=== PATIENT | female | born 1950 | race Caucasian/White ===

== ENCOUNTER 2019-11-29 09:24 | Outpatient (CLI) | payer MEDICARE, MEDICAID, SELFPAY ==
[2019-11-29 10:01] LABS: Basophils % 0.5 %; Eosinophils # 0.1 10^3/uL (0.0-0.8); Eosinophils % 2.6 %; Hematocrit 34.5 % (37.0-47.0); Hemoglobin 11.2 g/dL (11.5-15.3); Lymphocytes # 0.7 10^3/uL (0.8-4.8); Lymphocytes % 35.4 %; Mean Corpuscular HGB Conc 32.5 g/dL (30.0-36.0); Mean Corpuscular Hemoglobin 28.5 pg (28.0-34.0); Mean Corpuscular Volume 87.8 fL (81-99); Mean Platelet Volume 11.6 fL (7.4-10.4); Monocytes # 0.1 10^3/uL (0.2-0.9); Monocytes % 6.7 %; Neutrophils # 1.1 10^3/uL (1.8-7.7); Neutrophils % 54.8 %; Nucleated Red Blood Cells % 0 %; Platelet Count 77 10^3/cmm (130-400); Red Blood Count 3.93 10^6/uL (4.1-5.3); Red Cell Distribution Width 13.2 % (12.1-15.1)
[2019-11-29 15:16] LABS: Partial Thromboplastin Time 35.5 Seconds (23.9-36.7)
[2019-11-29 15:40] LABS: PTT 50/50 MIX 31.4 Seconds (23.9-36.7)
[2019-11-29 16:26] LABS: LAB Peripheral Smear Sent for Review
--- NOTE | 2019-11-29 17:08 | ONC CON_ITS ---
Dr. Hill New Patient Note Patient: Bijal Wise Unit #: [id number]: [id number] Dicatated By: Venanico Hill M.D.Date of Visit: Nov 29, 2019 Onc MED New Patient/Consult Referring Physician: Dr. NYASIA GONZALES M.D. History of Present Illness: Mrs. Bijal Wise, is a 69-year-old female with a history of low blood counts for many years, as per patient about 15 years ago she underwent bone marrow evaluation in [facility], as per patient at that time there was a concern about lesion on her spine, there was a concern about bone cancer but bone marrow evaluation showed no abnormality. And then about 3 years ago her routine labs showed high protein in the blood, at that time she underwent some further blood testing but since then she has been followed by her primary care. Denies any history of blood transfusion or platelet transfusion denies any recurrent infections. Denies any alcohol use or smoking, colonoscopy was done about 5 years ago and [place], as per patient it was normal and now follow-up was colonoscopy scheduled in August this year but because of coronavirus it was postponed. Patient denies any history of hepatitis or hepatic problem, no history of congestive heart failure. Patient denies any history of night sweats, recurrent fevers, weight loss, and peripheral lymphadenopathy. Recently she was diagnosed with iron deficiency as her labs from November 22, 2019 showed white blood count 3.2 hemoglobin 11.6 crit 36.3 platelets 87,000, reticulocyte count 2.1, TSH 1.5, folate 9.6, B12 419, iron saturation 18, iron 65, TIBC 364 total protein 6.7 ferritin 23. Patient was started on oral iron, tolerating reasonably well. Patient denies any history of melena or hematochezia, denies any history of hemoptysis or hematemesis, denies any jaundice, denies any palpitation or shortness of breath. Past Medical History: Ms. Reyes medical history consists of asthma, chronic obstructive pulmonary disease, degenerative joint disease, fibromyalgia, hiatal hernia, hypertension, obstructive sleep apnea, restless leg syndrome, and type II diabetes. Past Surgical History: Ms. Watsons surgical/procedural history consists of bilateral total knee replacement, bone marrow aspiration/biopsy, cataract excision, and hysterectomy. Medications: amLODIPine Besy-Benazepril HCl 1 Capsule (of 10-20 mg) Oral daily, Esomeprazole Magnesium 1 Capsule Oral b.i.d., HYDROcodone-Acetaminophen 1 Tablet (of 10-325 mg) Oral t.i.d. PRN, metFORMIN HCl 1 Tablet (of 1000 mg) Oral b.i.d., PARoxetine HCl 1 Tablet (of 40 mg) Oral daily, rOPINIRole HCl 1 Tablet (of 4 mg) Oral t.i.d. PRN Allergies: Mirapex Social History: Ms. Wise is legally and she is an unknown. She is a daily smoker who has smoked 0.5 packs/day for 30 years. She has no history of drinking. She has indicated exposure to the following products: cigarettes. Ms. Wise reports the following support systems: lives alone, supportive family/friends willing to assist with needs, and adequate transportation available for expected visits. Her diet consists of regular meals. She indicates her activity level as: occasional exercise. Family History: Ms. Wise's mother at age 68: stroke, and breast cancer. Ms. Wise's father at age 60: myocardial infarction. Ms. Wise has 2 sisters: 1 alive, 1 . Ms. Wise's first sister's breast cancer. Another sister's breast cancer. Review Of Symptoms: Constitutional - Appetite is poor but weight is increasing. No fever, night sweats, or hot flashes. Energy level is very poor, ENMT - Positive for sinus congestion/drainage. No mouth sores. No sore throat. Positive for difficulty swallowing, Hematologic/Lymphatic - No abnormal bruising or bleeding, Respiratory - Positive for shortness of breath. No cough. No pleuritic pain or hemoptysis, Cardiovascular - No angina pain. No palpitations, Gastrointestinal - Positive for nausea, no vomiting. No heartburn or acid reflux. No diarrhea. Positive for constipation. No blood in the stool or black stools, Genitourinary (F) - No dysuria or hematuria. Positive for urinary frequency. No urgency. Positive for incontinence, Musculoskeletal - Positive for joint and back pain, Neurologic - No headache. Positive for dizziness.Positive for numbness in right leg, Psychiatric - Positive for anxiety, no depression. No insomnia. Vital Signs: Performed on Nov 29, 2019 11:34: 8, 38.78 (HIGH), 2.21 sq.m, 67.00 in, 96 %, 79 /min, 24 /min, 135/72 mm(hg), 99.0 F (HIGH), and 247.6 lbs (HIGH). Performance Status: 1 - No physically strenuous activity, but ambulatory and able to carry out light or sedentary work (e.g. office work, light house work). (ECOG) Physical Examination: ENMT - No mouth sores, no thrush, no jaundice, no peripheral lymphadenopathy, Respiratory - Lungs are clear to auscultation, Cardiovascular - Regular rate and rhythm of heart, Abdomen - Soft, bowel sounds present, nontender, Extremities - No edema, or rash. Lab/Imaging: Most recent lab results are not available for this patient. Impression: Pancytopenia, etiology could be multifactorial including nutritional, copper, zinc deficiency could be due to medications, could be primary bone marrow disorder like myelodysplasia or other marrow disorder, or splenic sequestration or Plan: Discussed with patient regarding her labs white blood count 2 hemoglobin 11.2 g hematocrit 34.5 platelets 77,000 with a normal differential Clinically, patient is doing well with no acute symptoms. Her follow-up labs showed persistent/progressive pancytopenia, leukopenia/thrombocytopenia is more prominent., Etiology could be primary bone marrow disorder like myelodysplasia or other marrow pathology, patient has history of high protein in the blood so she may have underlying plasma cell disorder. At this point we will consider checking copper, zinc level and serum protein electrophoresis/immunofixation and peripheral blood smear and also consider ultrasound abdomen to check hepatic spleen status. Patient will return to clinic in 1 month and if work-up remains inconclusive, will consider bone marrow evaluation Patient was advised to call gastroenterology in [place] regarding follow-up colonoscopy to rule out colon pathology, as she is iron deficiency anemia,. Return to clinic in 1 month with CBC Signed By: Venancio Hill M.D. <<Signature on File>>
[2019-12-01 07:12] LABS: PROTEIN, TOTAL 6.5 g/dL (6.1-8.1)
[2019-12-01 12:21] LABS: ABNORMAL PROTEIN BAND 1 0.3 g/dL (NONE DETECTED); ALBUMIN 3.7 g/dL (3.8-4.8); ALPHA 1 GLOBULIN 0.3 g/dL (0.2-0.3); ALPHA 2 GLOBULIN 0.5 g/dL (0.5-0.9); BETA 1 GLOBULIN 0.5 g/dL (0.4-0.6); BETA 2 GLOBULIN 0.3 g/dL (0.2-0.5); GAMMA GLOBULIN 1.2 g/dL (0.8-1.7)
== END 2019-11-29 09:25 | disposition home or self-care (01) ==
PROVIDERS: PCP Family Medicine; Visit Provider Internal Medicine Hematology & Oncology
DX: D61.818 Other pancytopenia (principal); D69.6 Thrombocytopenia, unspecified; E60 Dietary zinc deficiency; J44.9 Chronic obstructive pulmonary disease, unspecified; M79.7 Fibromyalgia; K44.9 Diaphragmatic hernia without obstruction or gangrene; E83.00 Disorder of copper metabolism, unspecified; D50.9 Iron deficiency anemia, unspecified; I10 Essential (primary) hypertension; G47.33 Obstructive sleep apnea (adult) (pediatric); E11.9 Type 2 diabetes mellitus without complications; M19.90 Unspecified osteoarthritis, unspecified site; J45.909 Unspecified asthma, uncomplicated; G25.81 Restless legs syndrome
CPT/HCPCS: 80500; 84155; 84165; 85025; 85610; 85611; 85730; 99203

== ENCOUNTER 2019-12-27 06:45 | Outpatient (CLI) | payer MEDICARE, MEDICAID, SELFPAY ==
--- NOTE | 2019-12-27 07:00 | US_ITS ---
WS: [id number] ULTRASOUND ABDOMEN CLINICAL INFORMATION: pancytopenia TECHNICALLY DIFFICULT EXAMINATION. COMPARISON: None. FINDINGS: Liver Size: Normal. Craniocaudal length: 22.7 cm. Echogenicity: Normal. Surface nodularity: None. Mass (size and location): None. Bile ducts Intrahepatic ducts: Normal. Common bile duct diameter: 0.6 cm. Gallbladder Cholelithiasis Gallstones: Present Gallbladder sludge: None. Gallbladder wall thickening: None. Pericholecystic fluid: None. Sonographic Street sign: Absent. Pancreas Normal as visualized. Spleen Splenomegaly: Present Craniocaudal length: 21.5 cm. Right kidney: Normal. Hydronephrosis: None. Size: 12.2 cm x 4.9 cm x 5.4 cm Left kidney: Small simple cyst measuring 1.7 x 1.8 cm Hydronephrosis: None. Size: 12.3 cm x 5.7 cm x 4.6 cm. Abdominal aorta and IVC Visualized portions are normal. Ascites: None. US/US abdomen complete* [id number] IMPRESSION: 1. Hepatomegaly. 2. Cholelithiasis. No gallbladder wall thickening or pericholecystic fluid. 3. Normal common bile duct. 4. No hydronephrosis in either kidney. 5. Splenomegaly measuring 21.4 x 7.7 cm
== END 2019-12-27 06:46 | disposition home or self-care (01) ==
PROVIDERS: PCP Family Medicine; Visit Provider Internal Medicine Hematology & Oncology
DX: D61.818 Other pancytopenia (principal); R16.0 Hepatomegaly, not elsewhere classified; K80.20 Calculus of gallbladder without cholecystitis without obstruction; R16.1 Splenomegaly, not elsewhere classified
CPT/HCPCS: 76700

== ENCOUNTER 2020-01-05 08:26 | Outpatient (CLI) | payer MEDICARE, MEDICAID, SELFPAY ==
[2020-01-05 09:08] LABS: Basophils % 0.6 %; Eosinophils # 0.1 10^3/uL (0.0-0.8); Eosinophils % 3.4 %; Hematocrit 35.1 % (37.0-47.0); Hemoglobin 10.8 g/dL (11.5-15.3); Lymphocytes # 0.6 10^3/uL (0.8-4.8); Lymphocytes % 31.3 %; Mean Corpuscular HGB Conc 30.8 g/dL (30.0-36.0); Mean Corpuscular Hemoglobin 27.3 pg (28.0-34.0); Mean Corpuscular Volume 88.9 fL (81-99); Mean Platelet Volume 11.4 fL (7.4-10.4); Monocytes # 0.1 10^3/uL (0.2-0.9); Neutrophils # 1.06 10^3/uL (1.8-7.7); Neutrophils % 59.1 %; Nucleated Red Blood Cells % 0 %; Platelet Count 83 10^3/cmm (130-400); Red Blood Count 3.95 10^6/uL (4.1-5.3); Red Cell Distribution Width 14.2 % (12.1-15.1); White Blood Count 1.8 10^3/uL (4.0-10.0)
--- NOTE | 2020-01-05 16:16 | ONC FU_ITS ---
Dr. Hill follow up note Patient: Bijal Wise Unit #: [id number]: [id number] Dicatated By: Venancio Hill M.D.Date of Visit:Jan 05, 2020 Onc Med Follow-up/Prog Note History of Present Illness: Mrs. Bijal Wise, is a 69-year-old female with a history of low blood counts for many years, as per patient about 15 years ago she underwent bone marrow evaluation in [facility], as per patient at that time there was a concern about lesion on her spine, there was a concern about bone cancer but bone marrow evaluation showed no abnormality. And then about 3 years ago her routine labs showed high protein in the blood, at that time she underwent some further blood testing but since then she has been followed by her primary care. Denies any history of blood transfusion or platelet transfusion denies any recurrent infections. Denies any alcohol use or smoking, colonoscopy was done about 5 years ago and [place], as per patient it was normal and so follow-up was colonoscopy scheduled in August this year but because of coronavirus it was postponed. Patient denies any history of hepatitis or hepatic problem, no history of congestive heart failure. Patient denies any history of night sweats, recurrent fevers, weight loss, and peripheral lymphadenopathy. Recently she was diagnosed with iron deficiency as her labs from November 22, 2019 showed white blood count 3.2 hemoglobin 11.6 crit 36.3 platelets 87,000, reticulocyte count 2.1, TSH 1.5, folate 9.6, B12 419, iron saturation 18, iron 65, TIBC 364 total protein 6.7 ferritin 23. Patient was started on oral iron, tolerating reasonably well. Patient denies any history of melena or hematochezia, denies any history of hemoptysis or hematemesis, denies any jaundice, denies any palpitation or shortness of breath. Ultrasonogram Abdomen done on December 27, 2019 showed splenomegaly size being 21.5 cm and hepatomegaly size being 22.7 cm, gallstones but no hydronephrosis Serum protein electrophoresis/immunofixation done on November 29, 2019 confirmed faint restricted band M spike in the gamma region and immunofixation confirmed it as a IgA with a kappa antisera Came for follow-up, denies any specific complaints, no melena or hematochezia, no hemoptysis or hematemesis, no jaundice, no fever chills, no nausea or vomiting, some abdominal fullness but no abdominal pain, no night sweats. Medications: amLODIPine Besy-Benazepril HCl 1 Capsule (of 10-20 mg) Oral daily, Esomeprazole Magnesium 1 Capsule Oral b.i.d., HYDROcodone-Acetaminophen 1 Tablet (of 10-325 mg) Oral t.i.d. PRN, metFORMIN HCl 1 Tablet (of 1000 mg) Oral b.i.d., PARoxetine HCl 1 Tablet (of 40 mg) Oral daily, rOPINIRole HCl 1 Tablet (of 4 mg) Oral t.i.d. PRN Allergies: Mirapex Review of Systems: Constitutional - Appetite is poor but weight is increasing. No fever, night sweats, or hot flashes. Energy level is very poor, ENMT - Positive for sinus congestion/drainage. No mouth sores. No sore throat. Positive for difficulty swallowing, Hematologic/Lymphatic - No abnormal bruising or bleeding, Respiratory - Positive for shortness of breath. No cough. No pleuritic pain or hemoptysis, Cardiovascular - No angina pain. No palpitations, Gastrointestinal - Positive for nausea, no vomiting. No heartburn or acid reflux. No diarrhea. Positive for constipation. No blood in the stool or black stools, Genitourinary (F) - No dysuria or hematuria. Positive for urinary frequency. No urgency. Positive for incontinence, Musculoskeletal - Positive for joint and back pain, Neurologic - No headache. Positive for dizziness.Positive for numbness in right leg, Psychiatric - Positive for anxiety, no depression. No insomnia. Vital Signs: Performed on Jan 05, 2020 11:04 Height - 67.00 in Weight - 247.0 lbs (LOW) BSA - 2.21 sq.m BMI - 38.69 (HIGH) Temperature - 98.0 F (LOW) Pulse - 75 /min Respiration - 26 /min BP - 121/57 mm(hg) O2 Sat - 95 % (LOW) Pain - 9 Performance Status: 2 - Ambulatory/capable of all self-care, unable to perform any work activities. Up and about more than 50% of waking hours. (ECOG) Physical Examination: ENMT - No mouth sores, no thrush, no jaundice, Respiratory - Lungs are clear, Cardiovascular - Regular rate and rhythm of heart, Abdomen - Soft, bowel sounds present, Extremities - 1+ edema bilateral. Lab/Imaging: Test performed on Nov 29, 2019 09:40 WBC 2.0 10 3/uL RBC 3.93 10 6/uL HGB 11.2 g/dL HCT 34.5 % MCV 87.8 fL MCH 28.5 pg MCHC 32.5 g/dL RDW 13.2 % Platelet Count 77 10 3/cmm MPV 11.6 fL Neutrophils 1.1 10 3/uL Lymphocytes 0.7 10 3/uL Monocytes 0.1 10 3/uL Eosinophils 0.1 10 3/uL Basophils 0.0 10 3/uL Neutrophil % 54.8 % Lymphocyte % 35.4 % Monocyte % 6.7 % Eosinophil % 2.6 % Basophils % 0.5 % NRBC % 0 % Impression: Pancytopenia, etiology could be multifactorial including nutritional, copper, zinc deficiency could be due to medications, could be primary bone marrow disorder like myelodysplasia or other marrow disorder, or splenic sequestration or Hepatosplenomegaly seen on abdominal sonogram done on December 27, 2019, liver size was 22.7 cm and spleen size was 21.5 cm 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 Clinically, patient doing reasonably well, with no new signs symptoms but her follow-up lab work-up shows persistent pancytopenia, most likely due to splenic sequestration but concern is hepatosplenomegaly seen on recently done abdominal sonogram and IgA monoclonal gammopathy, she may have underlying lymphoplasmacytic lymphoma causing both abnormalities At this point, we will proceed with bone marrow evaluation and she will return to clinic in 1 week after bone marrow procedure for further discussion and planning , and also consider CT scan of chest abdomen pelvis to rule out central lymphadenopathy or organomegaly. Signed By: Venancio Hill M.D. <<Signature on File>>
[2020-01-08 20:49] LABS: Copper Level 101 mcg/dL (70-175); Zinc Level, Serum or Plasma 65 mcg/dL (60-130)
== END 2020-01-05 08:27 | disposition home or self-care (01) ==
LOC: ONCMED 08:31
PROVIDERS: PCP Family Medicine; Visit Provider Internal Medicine Hematology & Oncology
DX: D61.818 Other pancytopenia (principal); R16.2 Hepatomegaly with splenomegaly, not elsewhere classified; D47.2 Monoclonal gammopathy
CPT/HCPCS: 82525; 84630; 85025; 99214

== ENCOUNTER 2020-01-13 09:39 | Day surgery (SDC) | payer MEDICARE, MEDICAID, SELFPAY ==
[2020-01-06 13:10] VITALS: BMI 38.7
[2020-01-13 10:12] VITALS: BP 138/73; PULSE 78; RESP 20; TEMP 36.6; O2SAT 97
[2020-01-13 10:39] LABS: Glucose Point of Care 149 mg/dL (70-110)
[2020-01-13] MEDS: sodium chloride 0.9% 1,000 ML 30 ML IV (10:54)
--- NOTE | 2020-01-13 11:10 | P.ANESASSM_ITS ---
Pre-Anesthetic Assessment Pre-Anesthetic Assessment: Height/Weight: Height 1.7 m Weight 112.037 kg Temp Pulse Resp BP Pulse Ox 97.8 F 78 20 H 138/73 97 01/13/20 10:12 01/13/20 10:12 01/13/20 10:12 01/13/20 10:12 01/13/20 10:12 Preop Diagnosis: pancytopenia Proposed Procedure: Operation Date: 01/13/20 11:30 Proposed Procedures p Bone Marrow Biospy With Aspiration(Not Applicable) - Venancio Hill MD Familial anesthetic complications: none Was Beta Zuleima taken within 24 hours: N/A Last intake: Intake Last Liquid Date 01/12/20 Last Liquid Time 23:00 Last Solid Date 01/12/20 Last Solid Time 19:00 Social: Social History: Tobacco and No alcohol Packs per day: 0.5 Exam: Pre-Anes Outpt Exam: alert, oriented x 3, clear to auscultation bilater ally and regular rate & rhythm Airway: Submandibular: WNL Cervical ROM: WNL MP: 2 Dentition: False Pulmonary: Pulmonary: COPD, LAYNE, Sleep apnea (cpap) and SOB CV/HEM: CV/HEM: HTN : : None reported Hepatic: Hepatic: None reported GI: GI: GERD Metabolic: Metabolic: DM and Morbid obesity Musc/skel: Musc/skel: Fibromyalgia, Lower Back Pain, OA/DJD and Weakness (generalized right side from nerve damage) Neuropsych: Neuropsych: Depression Anesthetic Plan: ASA status: 3 Anesthesia: MAC Risk of > 500 ml blood loss (7ml/kg in children): No Meds/Allergies Current Medications: Current Medications Generic Name Dose Route Start Last Admin Trade Name Freq PRN Reason Stop Dose Admin Sodium Chloride 1,000 mls @ 30 ml s/hr 01/13/20 10:15 01/13/20 10:54 Sodium Chloride 0.9% IV 01/14/20 10:14 30 mls/hr .Q24H RUBIA Administration PFSH Anesthesia PFSH: Family History (Updated 01/06/20 @ 13:07 by Stefanie Morley) Mother Breast cancer Stroke Father Myocardial infarction Sister Breast cancer Social History (Updated 01/06/20 @ 13:05 by Stefanie Morley) Smoking and tobacco status: current every day smoker Data Anesthesia Other Labs: Laboratory Results - last 48 hr 01/13/20 10:36 POC Glucose 149 Cardiac Studies: No Data to Display
[2020-01-13 11:38] LABS: Hemoglobin 11.2 g/dL (11.5-15.3); Mean Corpuscular HGB Conc 31.1 g/dL (30.0-36.0); Mean Corpuscular Hemoglobin 27.1 pg (28.0-34.0); Mean Platelet Volume 11.4 fL (7.4-10.4); Platelet Count 89 10^3/cmm (130-400); Red Blood Count 4.14 10^6/uL (4.1-5.3); Red Cell Distribution Width 14.3 % (12.1-15.1); White Blood Count 2.1 10^3/uL (4.0-10.0)
--- NOTE | 2020-01-13 12:01 | P.PCN_ITS ---
Bone Marrow Biopsy Bone Marrow Biopsy: I was consulted by [] office regarding bone marrow biopsy on Bijal Wise[]. Briefly, the patient is a [69] year old [female] with []. In the Outpatient Services Department, with nursing staff and laboratory technologists in attendance, the procedure was discussed with the patient. Appropriate consent form had been signed. Appropriate alternatives, benefits and risks of procedure were discussed with the patient and she was pre- operatively assessed with a history and physical by myself and cleared for the biopsy procedure. The patient did request IV sedation and that was provided by the Anesthesia Department. During sedation patient desaturated and stop breathing, airway was secured by anesthesia and sedation was discontinued bone marrow procedure was abandoned before even it was started. Patient woke up and alert, post sedation instructions were given to nursing by anesthesia. We will schedule her procedure later on Thank you for allowing me to participate in this patient's care and diagnosis. Coding Level of Care Code Acute County Administrator for Tab Luna
[2020-01-13 12:04] VITALS: BP 110/68; PULSE 75; RESP 18; TEMP 36.3; O2SAT 97
[2020-01-13 12:06] LABS: Absolute Segmented Neutrophil 0.8 10/cmm (1.6-7.1); Band Neutrophils Absolute 0.1 10^3/cmm (0.0-1.2); Eosinophils 4 %; Lymphocytes 49 %; Platelet Estimate Decreased (Normal); Segmented Neutrophils 39 %; Total Cells Counted 100 (0-100)
--- NOTE | 2020-01-13 12:06 | PC.NURSE ---
1144-Pt asleep, and Dr Hill cleaned site off. Pt started moving, and pts O2 sats started dropping and pt not breathing well. George, RESERVATIONS CLERK put oral airway in, but oral airway kept getting dislodged. We had to take pts false teeth out also. Pts sats continued to drop to 68-70%. So we got the ambu bag out and hooked up to high flow O2 and used mask, but never had to give breaths. 1154- Procedure aborted, and we waited for pt to wake up. Pt did well after waking up. Dr Hill said that we would have to do procedure under local at another date.
[2020-01-13 12:07] LABS: Toxic Granulation 1+
--- NOTE | 2020-01-13 12:16 | ANE.PACU2 ---
Inpatient post-anesthesia follow up: Airway intact: Yes Vital signs: Temperature 97.4 F Pulse Rate 75 Respiratory Rate 18 Blood Pressure 110/68 Pulse Oximetry 97 Oxygen Delivery Me thod Nasal Cannula Oxygen Flow Rate 3 Fraction of Inspir ed Oxygen Hydration adequate: Yes Nausea and vomiting: No Pain level: 1 Mental status: Baseline
[2020-01-13 12:25] VITALS: BP 122/68; PULSE 78; RESP 18; O2SAT 100
== END 2020-01-13 12:35 | disposition home or self-care (01) ==
PROVIDERS: PCP Family Medicine; Visit Provider Internal Medicine Hematology & Oncology
PROC: 07DT3ZX Extraction of Bone Marrow, Percutaneous Approach, Diagnostic (ICD-10-PCS; CPT 38222; principal; 2020-01-13 11:30)
DX: D47.2 Monoclonal gammopathy (principal); D61.818 Other pancytopenia; F17.210 Nicotine dependence, cigarettes, uncomplicated; J44.9 Chronic obstructive pulmonary disease, unspecified; G47.30 Sleep apnea, unspecified; I10 Essential (primary) hypertension; K21.9 Gastro-esophageal reflux disease without esophagitis; E11.9 Type 2 diabetes mellitus without complications; E66.01 Morbid (severe) obesity due to excess calories; Z68.38 Body mass index [BMI] 38.0-38.9, adult; M79.7 Fibromyalgia; M19.90 Unspecified osteoarthritis, unspecified site; F32.9 Major depressive disorder, single episode, unspecified
CPT/HCPCS: 12345; 36416; 38222; 82962; 85007; 85027; J2704; J7030

== ENCOUNTER 2020-01-19 10:03 | Outpatient (CLI) | payer MEDICARE, MEDICAID, SELFPAY ==
--- NOTE | 2020-01-19 10:00 | CT_ITS ---
WS: [id number] CT CHEST, ABDOMEN, AND PELVIS TECHNIQUE: Contrast-enhanced CT of the chest, abdomen, and pelvis with coronal and sagittal reformatt ed images. CLINICAL INFORMATION: PANCYTOPENIA COMPARISON: None. DLP: 2449.[address] scans at [facility] use at least one of these dose optimization techniques: automat ed exposure control; mA and/or kV adjustment per patient size (includes targeted exams where dose is matched to clinical indication); or iterative reconstruction. CT CHEST: Mild chronic emphysematous changes. No acute pulmonary infiltrates. Slight atelectasis in the lung ba ses. 4 mm noncalcified nodule superior segment left lower lobe. Tiny noncalcified subpleural nodule r ight upper lobe. Additional 6 mm noncalcified nodule versus tortuous vessel in the right lower lobe. Subsegmental atelectasis right lower lobe. A few calcified granulomas. Normal thyroid gland. No mediastinal or hilar lymphadenopathy. Calcified hilar and mediastinal lymph nodes. Normal caliber thoracic aorta. Normal descending thoracic aorta. N o axillary lymphadenopathy. CT ABDOMEN AND PELVIS: Hepatomegaly with diffuse fatty infiltration. Portal vein and splenic vein are patent. Cholelithiasis . Splenomegaly. Spleen measures 18 cm [id number]. Small moderate esophageal hiatal hernia. Fatty at rophy of the pancreas. Adrenal glands are normal. Normal renal parenchymal enhancement. No hydronephrosis. Small left renal cyst measuring 15 mm. Tiny right renal cyst. Normal caliber abdominal aorta. Aortic calcification. No free fluid in the abdomen or pelvis. A few sigmoid diverticuli. No evidence of small or large yuko l obstruction. No adenopathy in the abdomen or pelvis. No inguinal lymphadenopathy. Normal lumbar spi ne.. CT/CT chest abd pel w con* IMPRESSION: 1. Hepatomegaly with diffuse fatty infiltration. Splenomegaly. 2. No adenopathy in the chest abdomen or pelvis. 3. A few small pulmonary nodules the largest measuring 4 mm. Additional 6 mm n odule versus ectatic vessel right lower lobe. Recommend 6 month follow-up. 4. Normal caliber abdominal aorta. 5. Left renal cyst measuring 15 mm
[2020-01-19] MEDS: iohexol 300 mg/mL 50 mL Btl PO (10:17)
[2020-01-19 11:29] LABS: Blood Urea Nitrogen 9 mg/dL (8-23); Glomerular Filtration Rate 158.7 mL/min (90-130)
[2020-01-19] MEDS: iohexol 300 mg/mL 100 mL Btl IV (11:32)
== END 2020-01-19 10:04 | disposition home or self-care (01) ==
PROVIDERS: PCP Family Medicine; Visit Provider Internal Medicine Hematology & Oncology
DX: D61.818 Other pancytopenia (principal); R16.2 Hepatomegaly with splenomegaly, not elsewhere classified; K76.0 Fatty (change of) liver, not elsewhere classified; N28.1 Cyst of kidney, acquired; R91.8 Other nonspecific abnormal finding of lung field
CPT/HCPCS: 71260; 74177; 82565; 84520; Q9967

== ENCOUNTER 2020-01-26 08:20 | Outpatient (CLI) | payer MEDICARE, MEDICAID, SELFPAY ==
[2020-01-26 08:59] LABS: Basophils % 0.7 %; Eosinophils # 0.1 10^3/uL (0.0-0.8); Eosinophils % 2.1 %; Hematocrit 37.5 % (37.0-47.0); Hemoglobin 11.8 g/dL (11.5-15.3); Lymphocytes # 0.7 10^3/uL (0.8-4.8); Lymphocytes % 24.6 %; Mean Corpuscular HGB Conc 31.5 g/dL (30.0-36.0); Mean Corpuscular Hemoglobin 27.2 pg (28.0-34.0); Mean Corpuscular Volume 86.4 fL (81-99); Mean Platelet Volume 11.4 fL (7.4-10.4); Monocytes # 0.2 10^3/uL (0.2-0.9); Monocytes % 5.6 %; Nucleated Red Blood Cells % 0 %; Platelet Count 95 10^3/cmm (130-400); Red Blood Count 4.34 10^6/uL (4.1-5.3); Red Cell Distribution Width 14.5 % (12.1-15.1); White Blood Count 2.8 10^3/uL (4.0-10.0)
[2020-01-26 09:21] LABS: Alanine Aminotransferase 15 U/L (0-33); Albumin Level 3.9 g/dL (3.5-5.2); Alkaline Phosphatase 56 IU/L (35-105); Anion Gap 13.6 (5-19); Aspartate Amino Transferase 27 U/L (0-32); Blood Urea Nitrogen 10 mg/dL (8-23); Calcium 9.1 mg/dL (8.5-10.5); Carbon Dioxide 25 mmol/L (22-29); Chloride 105 mmol/L (98-107); Globulin 3.5 g/dL (1.3-4.6); Glomerular Filtration Rate 158.7 mL/min (90-130); Glucose 361 mg/dL (65-115); Osmolality Calculated 299 mOsm/kg (285-295); Potassium 4.6 mmol/L (3.5-5.1); Sodium 139 mmol/L (136-145); Total Bilirubin 0.8 mg/dL (0.15-1.2); Total Protein 7.4 g/dL (6.6-8.7)
--- NOTE | 2020-01-27 16:53 | ONC FU_ITS ---
Dr. Hill follow up note Patient: Bijal Wise Unit #: [id number]: 1950 Dicatated By: Venancio Hill M.D.Date of Visit:Jan 26, 2020 Onc Med Follow-up/Prog Note History of Present Illness: Mrs. Bijal Wise, is a 69-year-old female with a history of low blood counts for many years, as per patient about 15 years ago she underwent bone marrow evaluation in [facility], [place], as per patient at that time there was a concern about lesion on her spine, there was a concern about bone cancer but bone marrow evaluation showed no abnormality. And then about 3 years ago her routine labs showed high protein in the blood, at that time she underwent some further blood testing but since then she has been followed by her primary care. Denies any history of blood transfusion or platelet transfusion denies any recurrent infections. Denies any alcohol use or smoking, colonoscopy was done about 5 years ago and [place], as per patient it was normal and so follow-up was colonoscopy scheduled in August this year but because of coronavirus it was postponed. Patient denies any history of hepatitis or hepatic problem, no history of congestive heart failure. Patient denies any history of night sweats, recurrent fevers, weight loss, and peripheral lymphadenopathy. Recently she was diagnosed with iron deficiency as her labs from November 22, 2019 showed white blood count 3.2 hemoglobin 11.6 crit 36.3 platelets 87,000, reticulocyte count 2.1, TSH 1.5, folate 9.6, B12 419, iron saturation 18, iron 65, TIBC 364 total protein 6.7 ferritin 23. Patient was started on oral iron, tolerating reasonably well. Patient denies any history of melena or hematochezia, denies any history of hemoptysis or hematemesis, denies any jaundice, denies any palpitation or shortness of breath. Ultrasonogram Abdomen done on December 27, 2019 showed splenomegaly size being 21.5 cm and hepatomegaly size being 22.7 cm, gallstones but no hydronephrosis Serum protein electrophoresis/immunofixation done on November 29, 2019 confirmed faint restricted band M spike in the gamma region and immunofixation confirmed it as a IgA with a kappa antisera as SPEP shows IgA monoclonal gammopathy to rule out lymphoplasmacytic lymphoma or lymphoproliferative disorder CT scan of chest abdomen pelvis was done on January 19, 2020 which showed no central lymphadenopathy, but hepatosplenomegaly and a few small pulmonary nodules the largest measuring 4 mm and additional 6 mm nodule versus ectatic vessel right lower lobe. Recommended 6-month follow-up Came for follow-up, denies any specific complaints today, no fever chills, no nausea or vomiting, no diarrhea or constipation, no melena or hematochezia, bone marrow aspiration/biopsy was attempted under sedation but because of history of severe sleep apnea, patient could not tolerate sedation so procedure was abandoned even before started. Medications: amLODIPine Besy-Benazepril HCl 1 Capsule (of 10-20 mg) Oral daily, Esomeprazole Magnesium 1 Capsule Oral b.i.d., HYDROcodone-Acetaminophen 1 Tablet (of 10-325 mg) Oral t.i.d. PRN, metFORMIN HCl 1 Tablet (of 1000 mg) Oral b.i.d., PARoxetine HCl 1 Tablet (of 40 mg) Oral daily, rOPINIRole HCl 1 Tablet (of 4 mg) Oral t.i.d. PRN Allergies: Mirapex Review of Systems: Constitutional - Appetite is poor but weight is increasing. No fever, night sweats, or hot flashes. Energy level is very poor, ENMT - Positive for sinus congestion/drainage. No mouth sores. No sore throat. Positive for difficulty swallowing, Hematologic/Lymphatic - No abnormal bruising or bleeding, Respiratory - Positive for shortness of breath. No cough. No pleuritic pain or hemoptysis, Cardiovascular - No angina pain. No palpitations, Gastrointestinal - Positive for nausea, no vomiting. No heartburn or acid reflux. No diarrhea. Positive for constipation. No blood in the stool or black stools, Genitourinary (F) - No dysuria or hematuria. Positive for urinary frequency. No urgency. Positive for incontinence, Musculoskeletal - Positive for joint and back pain, Neurologic - No headache. Positive for dizziness.Positive for numbness in right leg, Psychiatric - Positive for anxiety, no depression. No insomnia. Vital Signs: Performed on Jan 26, 2020 10:24 Height - 67.00 in Weight - 240.0 lbs (LOW) BSA - 2.18 sq.m BMI - 37.59 (HIGH) Temperature - 98.1 F (LOW) Pulse - 79 /min Respiration - 26 /min BP - 153/82 mm(hg) (HIGH) O2 Sat - 98 % Pain - 7 Performance Status: 1 - No physically strenuous activity, but ambulatory and able to carry out light or sedentary work (e.g. office work, light house work). (ECOG) Physical Examination: ENMT - No mouth sores, no thrush, no jaundice, Respiratory - Lungs are clear, Cardiovascular - Regular rate and rhythm of heart, Abdomen - Soft, bowel sounds present, Extremities - No visible edema. Lab/Imaging: Test performed on Jan 05, 2020 08:53 Copper 101 mcg/dL WBC 1.8 10 3/uL RBC 3.95 10 6/uL HGB 10.8 g/dL HCT 35.1 % MCV 88.9 fL MCH 27.3 pg MCHC 30.8 g/dL RDW 14.2 % Platelet Count 83 10 3/cmm MPV 11.4 fL Neutrophils 1.06 10 3/uL Lymphocytes 0.6 10 3/uL Monocytes 0.1 10 3/uL Eosinophils 0.1 10 3/uL Basophils 0.0 10 3/uL Neutrophil % 59.1 % Lymphocyte % 31.3 % Monocyte % 5.0 % Eosinophil % 3.4 % Basophils % 0.6 % NRBC % 0 % Impression: Pancytopenia, etiology could be multifactorial including nutritional, copper, zinc deficiency could be due to medications, could be primary bone marrow disorder like myelodysplasia or other marrow disorder, or splenic sequestration or Hepatosplenomegaly seen on abdominal sonogram done on December 27, 2019, liver size was 22.7 cm and spleen size was 21.5 cm 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 per serum protein electrophoresis/immunofixation done on November 29, 2019 Plan: Discussed with patient regarding her labs white blood count 2.8 hemoglobin 11.8 hematocrit 37.5 platelets 95,000 with CMP within normal range And CT scan of chest abdomen pelvis done on January 19, 2020 showed hepatomegaly with diffuse fatty infiltration and splenomegaly. No adenopathy in the chest abdomen pelvis. A few small pulmonary nodules the largest measuring 4 mm, additional 6 mm nodule versus ectatic vessel right lower lobe. Recommend 6-month follow-up. Clinically, patient is doing well with no new signs symptoms, her follow-up CBC shows improvement in her total white blood cell e.g. 2.8 now compared to 1.8 on January 05, 2020 and platelet count is also improving 95,000 compared to 83,000 on January 05, 2020, bone marrow was attempted but patient could not tolerate sedation so procedure was abandoned even before started, patient was hesitant to consider bone marrow under local anesthesia And if needed we will consider bone marrow aspiration under local anesthesia.^. As her follow-up CBC shows improvement in her blood counts,, patient is on oral iron, will monitor as her mild bicytopenia could be due to splenic sequestration as she has significant hepatosplenomegaly of unknown etiology, we will refer her to php programmer at [facility] for evaluation she will return to clinic after evaluation at [facility] in [place], with CBC and iron studies. As SPEP shows IgA monoclonal gammopathy, CT scan of chest abdomen pelvis was done to rule out lymphoplasmacytic or lymphoproliferative disorder, it showed no central lymphadenopathy but hepatosplenomegaly and few subcentimeter lung nodules ] Signed By: Venancio Hill M.D. <<Signature on File>>
== END 2020-01-26 08:21 | disposition home or self-care (01) ==
LOC: ONCMED 08:25
PROVIDERS: PCP Family Medicine; Visit Provider Internal Medicine Hematology & Oncology
DX: D61.818 Other pancytopenia (principal); E61.0 Copper deficiency; E60 Dietary zinc deficiency; D47.2 Monoclonal gammopathy; R16.2 Hepatomegaly with splenomegaly, not elsewhere classified; J44.9 Chronic obstructive pulmonary disease, unspecified; M79.7 Fibromyalgia; I10 Essential (primary) hypertension; G47.33 Obstructive sleep apnea (adult) (pediatric); G25.81 Restless legs syndrome; E11.9 Type 2 diabetes mellitus without complications
CPT/HCPCS: 80053; 85025; G0463

== ENCOUNTER 2020-06-23 07:55 | Outpatient (CLI) | payer MEDICARE, MEDICAID, SELFPAY ==
[2020-06-23 10:43] LABS: Basophils % 0.3 %; Eosinophils % 0.3 %; Hematocrit 39.6 % (37.0-47.0); Lymphocytes # 1.6 10^3/uL (0.8-4.8); Lymphocytes % 24.7 %; Mean Corpuscular HGB Conc 32.8 g/dL (30.0-36.0); Mean Corpuscular Hemoglobin 27.4 pg (28.0-34.0); Mean Corpuscular Volume 83.5 fL (81-99); Mean Platelet Volume 10.1 fL (7.4-10.4); Monocytes # 0.4 10^3/uL (0.2-0.9); Monocytes % 6.5 %; Neutrophils # 4.38 10^3/uL (1.8-7.7); Neutrophils % 66.2 %; Nucleated Red Blood Cells % 0 %; Platelet Count 113 10^3/cmm (130-400); Red Blood Count 4.74 10^6/uL (4.1-5.3); Red Cell Distribution Width 14.6 % (12.1-15.1); White Blood Count 6.6 10^3/uL (4.0-10.0)
[2020-06-23 10:59] LABS: Alanine Aminotransferase 35 U/L (0-33); Albumin Level 4.1 g/dL (3.5-5.2); Alkaline Phosphatase 50 IU/L (35-105); Anion Gap 14.3 (5-19); Aspartate Amino Transferase 21 U/L (0-32); Blood Urea Nitrogen 12 mg/dL (8-23); Calcium 9.8 mg/dL (8.5-10.5); Carbon Dioxide 28 mmol/L (22-29); Chloride 99 mmol/L (98-107); Ferritin 68 ng/mL (15-150); Globulin 2.7 g/dL (1.3-4.6); Glomerular Filtration Rate 221.2 mL/min (90-130); Glucose 149 mg/dL (65-115); Iron 90 ug/dL (37-145); Osmolality Calculated 287 mOsm/kg (285-295); Potassium 4.3 mmol/L (3.5-5.1); Sodium 137 mmol/L (136-145); Total Bilirubin 0.5 mg/dL (0.15-1.2); Total Iron Binding Capacity 321 mcg/dl; Total Protein 6.8 g/dL (6.6-8.7); Unsaturated Iron Binding 231 ug/dL (112-347)
== END 2020-06-23 07:56 | disposition home or self-care (01) ==
LOC: ONCMED 12:15
PROVIDERS: PCP Family Medicine; Visit Provider Internal Medicine Hematology & Oncology
DX: D61.818 Other pancytopenia (principal)
CPT/HCPCS: 80053; 82728; 83540; 83550; 85025

== ENCOUNTER 2020-06-26 05:34 | Outpatient (CLI) | payer MEDICARE, MEDICAID, SELFPAY ==
--- NOTE | 2020-06-26 16:34 | ONC FU_ITS ---
Dr. Hill follow up note Patient: Bijal Wise Unit #: [id number]: [id number] Dicatated By: Venancio Hill M.D.Date of Visit:Jun 26, 2020 Onc Med Follow-up/Prog Note History of Present Illness: Mrs. Bijal Wise, is a 69-year-old female with a history of low blood counts for many years, as per patient about 15 years ago she underwent bone marrow evaluation in [facility], as per patient at that time there was a concern about lesion on her spine, there was a concern about bone cancer but bone marrow evaluation showed no abnormality. And then about 3 years ago her routine labs showed high protein in the blood, at that time she underwent some further blood testing but since then she has been followed by her primary care. Denies any history of blood transfusion or platelet transfusion denies any recurrent infections. Denies any alcohol use or smoking, colonoscopy was done about 5 years ago and [place], as per patient it was normal and so follow-up was colonoscopy scheduled in August this year but because of coronavirus it was postponed. Patient denies any history of hepatitis or hepatic problem, no history of congestive heart failure. Patient denies any history of night sweats, recurrent fevers, weight loss, and peripheral lymphadenopathy. Recently she was diagnosed with iron deficiency as her labs from November 22, 2019 showed white blood count 3.2 hemoglobin 11.6 crit 36.3 platelets 87,000, reticulocyte count 2.1, TSH 1.5, folate 9.6, B12 419, iron saturation 18, iron 65, TIBC 364 total protein 6.7 ferritin 23. Patient was started on oral iron, tolerating reasonably well. Patient denies any history of melena or hematochezia, denies any history of hemoptysis or hematemesis, denies any jaundice, denies any palpitation or shortness of breath. Ultrasonogram Abdomen done on December 27, 2019 showed splenomegaly size being 21.5 cm and hepatomegaly size being 22.7 cm, gallstones but no hydronephrosis Serum protein electrophoresis/immunofixation done on November 29, 2019 confirmed faint restricted band M spike in the gamma region and immunofixation confirmed it as a IgA with a kappa antisera Evaluated via telephone, patient denies any specific complaints, no fever chills, no nausea or vomiting, no diarrhea constipation since our last visit in January 2020 as per patient she was diagnosed with walking pneumonia and treated with oral antibiotic as outpatient. And she missed her initial appointment with orthotic/prosthetic practitioner in [place]., No melena or hematochezia, no hemoptysis or hematemesis, no nosebleed or gum bleed. Medications: amLODIPine Besy-Benazepril HCl 1 Capsule (of 10-20 mg) Oral daily, Esomeprazole Magnesium 1 Capsule Oral b.i.d., HYDROcodone-Acetaminophen 1 Tablet (of 10-325 mg) Oral t.i.d. PRN, metFORMIN HCl 1 Tablet (of 1000 mg) Oral b.i.d., PARoxetine HCl 1 Tablet (of 40 mg) Oral daily, rOPINIRole HCl 1 Tablet (of 4 mg) Oral t.i.d. PRN Allergies: Mirapex Review of Systems: Review of Systems is not available for this patient. Vital Signs: Vitals are not available for this patient. Performance Status: 1 - No physically strenuous activity, but ambulatory and able to carry out light or sedentary work (e.g. office work, light house work). (ECOG) Physical Examination: ENMT - Patient denies mouth sores or thrush or lymphadenopathy or jaundice, Respiratory - Patient denies any shortness of breath or wheezing, Cardiovascular - Patient denies any palpitation, Abdomen - Patient denies any abdominal pain or fullness, Extremities - Patient denies any lower extremity edema. Lab/Imaging: Test performed on Jan 26, 2020 08:35 Sodium 139 mmol/L Potassium 4.6 mmol/L Chloride 105 mmol/L CO2 25 mmol/L Anion Gap 13.6 BUN 10 mg/dL Creatinine 0.4 mg/dL Cr Clearance (Est) 231.34 mL/min eGFR 158.7 mL/min Glucose 361 mg/dL Calcium 9.1 mg/dL Osmolality - Calculated 299 mOsm/kg Protein, Total 7.4 g/dL Albumin 3.9 g/dL Globulin 3.5 g/dL Bilirubin, Total 0.8 mg/dL ALT (SGPT) 15 U/L AST (SGOT) 27 U/L Alkaline Phosphatase 56 IU/L WBC 2.8 10 3/uL RBC 4.34 10 6/uL HGB 11.8 g/dL HCT 37.5 % MCV 86.4 fL MCH 27.2 pg MCHC 31.5 g/dL RDW 14.5 % Platelet Count 95 10 3/cmm MPV 11.4 fL Neutrophils 1.90 10 3/uL Lymphocytes 0.7 10 3/uL Monocytes 0.2 10 3/uL Eosinophils 0.1 10 3/uL Basophils 0.0 10 3/uL Neutrophil % 67.0 % Lymphocyte % 24.6 % Monocyte % 5.6 % Eosinophil % 2.1 % Basophils % 0.7 % NRBC % 0 % Test performed on Jan 05, 2020 08:53 Copper 101 mcg/dL Zinc 65 mcg/dL Impression: Pancytopenia, etiology could be multifactorial including nutritional, copper, zinc deficiency could be due to medications, could be primary bone marrow disorder like myelodysplasia or other marrow disorder, or splenic sequestration or Hepatosplenomegaly seen on abdominal sonogram done on December 27, 2019, liver size was 22.7 cm and spleen size was 21.5 cm 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 per serum protein electrophoresis/immunofixation done on November 29, 2019 Plan: Discussed with patient regarding her labs white blood count 6.6 hemoglobin 13 g hematocrit 39.6 platelets 113,000 CMP within normal limit except glucose 149 Clinically, patient is doing well denies any specific complaints her follow-up CBC shows resolution of persistent leukopenia and anemia and improvement in her mild/moderate thrombocytopenia. Patient was advised to keep her appointment with orthotic/prosthetic practitioner which is now scheduled for last part of August 2020. In the meantime she will return to clinic in 2 months with CBC CMP and SPEP/immunofixation and IgA level. Signed By: Venancio Hill M.D. <<Signature on File>>
== END 2020-06-26 05:35 | disposition home or self-care (01) ==
LOC: ONCMED 05:36
PROVIDERS: PCP Family Medicine; Visit Provider Internal Medicine Hematology & Oncology
DX: D61.818 Other pancytopenia (principal)

== ENCOUNTER 2021-01-24 11:29 | Outpatient (CLI) | payer MEDICARE, MEDICAID, SELFPAY ==
[2021-01-24 12:29] LABS: Basophils % 0.8 %; Eosinophils % 1.1 %; Hematocrit 36.8 % (37.0-47.0); Hemoglobin 11.1 g/dL (11.5-15.3); Lymphocytes % 28.1 %; Mean Corpuscular HGB Conc 30.2 g/dL (30.0-36.0); Mean Corpuscular Hemoglobin 26.4 pg (28.0-34.0); Mean Corpuscular Volume 87.6 fL (81-99); Mean Platelet Volume 10.4 fL (7.4-10.4); Monocytes # 0.3 10^3/uL (0.2-0.9); Monocytes % 6.8 %; Neutrophils # 2.27 10^3/uL (1.8-7.7); Neutrophils % 62.1 %; Nucleated Red Blood Cells % 0 %; Platelet Count 148 10^3/cmm (130-400); Red Cell Distribution Width 15.9 % (12.1-15.1); White Blood Count 3.7 10^3/uL (4.0-10.0)
[2021-01-24 12:50] LABS: Alanine Aminotransferase 19 U/L (0-33); Albumin Level 3.7 g/dL (3.5-5.2); Alkaline Phosphatase 47 IU/L (35-105); Aspartate Amino Transferase 18 U/L (0-32); Blood Urea Nitrogen 12 mg/dL (8-23); Calcium 9.3 mg/dL (8.5-10.5); Carbon Dioxide 25 mmol/L (22-29); Chloride 104 mmol/L (98-107); Globulin 2.7 g/dL (1.3-4.6); Glomerular Filtration Rate 158.3 mL/min (90-130); Glucose 143 mg/dL (65-115); Immunoglobulin IGA 448 mg/dL (70-400); Osmolality Calculated 294 mOsm/kg (285-295); Sodium 141 mmol/L (136-145); Total Bilirubin 0.7 mg/dL (0.15-1.2); Total Protein 6.4 g/dL (6.6-8.7)
[2021-01-25 05:53] LABS: PROTEIN, TOTAL 6.3 g/dL (6.1-8.1)
[2021-01-25 13:02] LABS: ABNORMAL PROTEIN BAND 1 0.2 g/dL (NONE DETECTED); ALBUMIN 3.6 g/dL (3.8-4.8); ALPHA 1 GLOBULIN 0.3 g/dL (0.2-0.3); ALPHA 2 GLOBULIN 0.6 g/dL (0.5-0.9); BETA 1 GLOBULIN 0.5 g/dL (0.4-0.6); BETA 2 GLOBULIN 0.4 g/dL (0.2-0.5)
--- NOTE | 2021-01-25 17:02 | ONC FU_ITS ---
Dr. Hill follow up note Patient: Bijal Wise Unit #: [id number]: 1950 Dicatated By: Venancio Hill M.D.Date of Visit:Jan 24, 2021 Onc Med Follow-up/Prog Note History of Present Illness: Mrs. Bijal Wise, is a 69-year-old female with a history of low blood counts for many years, as per patient about 15 years ago she underwent bone marrow evaluation in [facility], as per patient at that time there was a concern about lesion on her spine, there was a concern about bone cancer but bone marrow evaluation showed no abnormality. And then about 3 years ago her routine labs showed high protein in the blood, at that time she underwent some further blood testing but since then she has been followed by her primary care. Denies any history of blood transfusion or platelet transfusion denies any recurrent infections. Denies any alcohol use or smoking, colonoscopy was done about 5 years ago and [place], as per patient it was normal and so follow-up was colonoscopy scheduled in August this year but because of coronavirus it was postponed. Patient denies any history of hepatitis or hepatic problem, no history of congestive heart failure. Patient denies any history of night sweats, recurrent fevers, weight loss, and peripheral lymphadenopathy. Recently she was diagnosed with iron deficiency as her labs from November 22, 2019 showed white blood count 3.2 hemoglobin 11.6 crit 36.3 platelets 87,000, reticulocyte count 2.1, TSH 1.5, folate 9.6, B12 419, iron saturation 18, iron 65, TIBC 364 total protein 6.7 ferritin 23. Patient was started on oral iron, tolerating reasonably well. Patient denies any history of melena or hematochezia, denies any history of hemoptysis or hematemesis, denies any jaundice, denies any palpitation or shortness of breath. Ultrasonogram Abdomen done on December 27, 2019 showed splenomegaly size being 21.5 cm and hepatomegaly size being 22.7 cm, gallstones but no hydronephrosis Serum protein electrophoresis/immunofixation done on November 29, 2019 confirmed faint restricted band M spike in the gamma region and immunofixation confirmed it as a IgA with a kappa antisera earlier bone marrow was attempted to rule out plasma cell disorder and etiology of pancytopenia but prior to procedure with conscious sedation, patient become unresponsive, procedure was abandoned and anesthesiology managed her well. Came for follow-up, denies any specific complaints except generalized weakness and fatigue, no nausea or vomiting, no diarrhea or constipation, no melena or hematochezia no hemoptysis or hematemesis, earlier bone marrow was attempted to rule out plasma cell disorder and etiology of pancytopenia but prior to procedure with conscious sedation, patient become unresponsive, procedure was abandoned and anesthesiology managed her well. Medications: amLODIPine Besy-Benazepril HCl 1 Capsule (of 10-20 mg) Oral daily, Esomeprazole Magnesium 1 Capsule Oral b.i.d., HYDROcodone-Acetaminophen 1 Tablet (of 10-325 mg) Oral t.i.d. PRN, metFORMIN HCl 1 Tablet (of 1000 mg) Oral b.i.d., PARoxetine HCl 1 Tablet (of 40 mg) Oral daily, rOPINIRole HCl 1 Tablet (of 4 mg) Oral t.i.d. PRN Allergies: Mirapex Review of Systems: Review of Systems is not available for this patient. Vital Signs: Performed on Jan 24, 2021 16:30 Height - 67.00 in Weight - 228 lbs (LOW) BSA - 2.14 sq.m BMI - 35.71 (HIGH) Temperature - 97.0 F (LOW) Pulse - 77 /min Respiration - 18 /min BP - 145/78 mm(hg) (HIGH) O2 Sat - 97 % Pain - 8 Fatigue - 8 Performance Status: 1 - No physically strenuous activity, but ambulatory and able to carry out light or sedentary work (e.g. office work, light house work). (ECOG) Physical Examination: ENMT - No mouth sores, no thrush, no jaundiceNo cervical lymphadenopathy, Respiratory - Lungs are clear to auscultation, Cardiovascular - Regular rate and rhythm of heart, Abdomen - Soft, bowel sounds present, Extremities - Trace edema bilaterally. Lab/Imaging: Test performed on Jan 19, 2021 09:31 Glucose 199 mg/dL BUN 13 mg/dL Creatinine 0.60 mg/dL Cr Clearance (Est) 152.08 mL/min BUN/Creatinine Ratio 22 Absolute Value Sodium 139 mmol/L Potassium 3.8 mmol/L Chloride 102 mmol/L CO2 20 mmol/L Calcium 9.2 mg/dL Protein, Total 6.0 g/dL Albumin 3.5 g/dL Globulin 2.5 g/dL A/G Ratio 1.4 Absolute Value Bilirubin, Total 0.9 mg/dL Alkaline Phosphatase 46 IU/L AST (SGOT) 14 IU/L ALT (SGPT) 19 IU/L WBC 2.3 10^9/L RBC 3.51 10^12/L HGB 9.4 g/dL HCT 29.9 % MCV 85 fl MCH 26.8 pg MCHC 31.4 g/dL RDW 15.6 % Platelet Count 66 10^9/L Neutrophils (Gran) 1.2 10^9/L Lymphocytes 0.8 10^9/L Monocytes 0.4 10^9/L Eosinophils 0.0 10^9/L Basophils 0.0 10^9/L Manual Segs 44 % Manual Lymphocytes 33 % Manual Monocytes 16 % Manual Eosinophils 0 % Manual Basophils 1 % IGA 402 mg/dL IGG 743 mg/dL IGM 156 mg/dL Impression: Pancytopenia, etiology could be multifactorial including nutritional, copper, zinc deficiency could be due to medications, could be primary bone marrow disorder like myelodysplasia or other marrow disorder, or splenic sequestration or Hepatosplenomegaly seen on abdominal sonogram done on December 27, 2019, liver size was 22.7 cm and spleen size was 21.5 cm 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 per serum protein electrophoresis/immunofixation done on November 29, 2019, Bone marrow evaluation was attempted but prior to procedure with conscious sedation, patient become unresponsive, procedure was abandoned and patient was managed by anesthesiology Plan: .Discussed with patient regarding her labs white blood count 3.7 compared to 2.3 previously hemoglobin 11.1 g compared to 9.4 previously platelets 148,000 compared to 66 on January 19, 2021 CMP within normal limit. Quantitative globin shows IgA of 448, IgG 743 IgM 156 Clinically, patient doing reasonably well with no new signs symptom, her follow-up CBC showed resolution of mild/moderate thrombocytopenia, and significant improvement in leukopenia as well as anemia, etiology of her pancytopenia seen on her labs done on January 19, 2021 remained unclear could be due to subclinical infection or lab error As far as IgA monoclonal gammopathy is concerned, concern is plasma cell disorder like myeloma, bone marrow was attempted but due to conscious sedation patient become unresponsive so procedure was abandoned, discussed with patient regarding doing bone marrow under local anesthesia but patient is reluctant but will think about she will return to clinic in 1 month with CBC and iron studies as patient is on oral iron and tolerating reasonably well.And the patient agrees, we may consider bone marrow evaluation under local anesthesia to rule out plasma cell disorder like myeloma Signed By: Venancio Hill M.D. <<Signature on File>>
== END 2021-01-24 11:30 | disposition home or self-care (01) ==
LOC: ONCMED 11:34
PROVIDERS: PCP Family Medicine; Visit Provider Internal Medicine Hematology & Oncology
DX: D61.818 Other pancytopenia (principal); R16.2 Hepatomegaly with splenomegaly, not elsewhere classified; D47.2 Monoclonal gammopathy; Z79.899 Other long term (current) drug therapy
CPT/HCPCS: 36415; 80053; 82784; 84155; 84165; 85025; 99214

== ENCOUNTER → 2021-03-01 09:00 | Outpatient (BNVA) | payer MEDICARE, MEDICAID, SELFPAY | PROVIDERS: PCP Family Medicine; Visit Provider Internal Medicine Rheumatology | DX: M15.9 Polyosteoarthritis, unspecified (principal); Z79.899 Other long term (current) drug therapy; Z11.59 Encounter for screening for other viral diseases; Z11.1 Encounter for screening for respiratory tuberculosis; D89.2 Hypergammaglobulinemia, unspecified; E11.9 Type 2 diabetes mellitus without complications; Z79.84 Long term (current) use of oral hypoglycemic drugs; Z71.89 Other specified counseling; F17.200 Nicotine dependence, unspecified, uncomplicated; M19.90 Unspecified osteoarthritis, unspecified site | CPT/HCPCS: 36415; 71046; 73130; 73630; 82306; 85651; 86140; 86431; 86480; 86704; 86803; 87340; 99204 ==

== ENCOUNTER 2021-03-01 10:59 | Outpatient (CLI) | payer MEDICARE, MEDICAID, SELFPAY ==
--- NOTE | 2021-03-01 11:08 | XR_ITS ---
WS: [id number] XR foot RT min 3V* [id number] REASON FOR EXAM: Z79.899 - Other senior care (current) drug therapy FINDINGS: In the forefoot there is mild narrowing of the joint spaces with subchondral sclerosis in the DIP and MIP joints of the second through the fifth toes of the right foot Similar arthropathy is seen in the interphalangeal joint of the right great toe. A similar but more s evere arthropathy is seen in the tarsal metatarsal joint of the great toe. In the remainder of the right midfoot and in the hindfoot there is mild narrowing of the joint spaces with no significant bony abnormality or soft tissue abnormality. Small enthesophyte is seen at the p lantar ligament insertion on the calcaneus. XR/XR foot RT min 3V* [id number] IMPRESSION: Osteoarthritis of the right foot as above.
--- NOTE | 2021-03-01 11:08 | XR_ITS ---
WS: [id number] XR hand LT min 3V* [id number] REASON FOR EXAM: Z79.899 - Other jail (current) drug therapy FINDINGS: Mild narrowing of the joint space with subchondral sclerosis in the DIP and MIP joints of the left se cond through the fifth fingers. This is most notable in the DIP joints of the left first and fifth fi ngers. Similar but milder changes are seen in the MP joint and PIP joint of the left thumb. A more significa nt arthropathy is seen in the metacarpal phalangeal joint of the thumb with the same characterization . 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
--- NOTE | 2021-03-01 11:08 | XR_ITS ---
WS: [id number] XR foot LT min 3V* [id number] REASON FOR EXAM: Z79.899 - Other prison (current) drug therapy FINDINGS: Mild narrowing of the joint spaces with mild subchondral sclerosis in the second through the fifth to es of the left foot. Similar mild changes seen in the interphalangeal joint of the left In the remainder of the left midfoot and the hindfoot there is mild narrowing of the joint spaces wit hout significant bony or soft tissue abnormality. A small enthesophyte is seen at the insertion of th e plantar ligament on the calcaneus. Great toe. There is a more significant arthropathy of the same c haracter involving the tarsal metatarsal joint of the left great toe. 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
--- NOTE | 2021-03-01 11:08 | XR_ITS ---
WS: [id number] XR chest 2V* [id number] REASON FOR EXAM: Z79.899 - Other snf (current) drug therapy FINDINGS: Moderately tortuous and ectatic thoracic aorta without aneurysmal dilatation. Heart size at the upper limits of normal. Calcified granulomatous disease in both hemithoraces. No active pulmonary parenchymal or pleural dise ase. Bony thorax is intact. XR/XR chest 2V* [id number] IMPRESSION: No significant chest abnormality.
--- NOTE | 2021-03-01 11:08 | XR_ITS ---
WS: [id number] XR hand RT min 3V* [id number] REASON FOR EXAM: Z79.899 - Other senior living (current) drug therapy FINDINGS: Mild narrowing of the joint space with subchondral sclerosis and marginal osteophytes in the right th ird through the fifth DIP joints. There is mild narrowing of the MIP joints of the second through the fifth fingers. Similar arthropathy is seen in the interphalangeal joint of the right thumb. Similar but milder arthr opathic changes in the MP joint and carpal metacarpal joint of the thumb. XR/XR hand RT min 3V* [id number] IMPRESSION: Osteoarthritis right hand as above.
[2021-03-01 12:54] LABS: 25 Hydroxy Vitamin D 23 ng/mL (30-100); C Reactive Protein 3.8 mg/L (0.0-4.9); Hepatitis B Core AB, Total Non-Reactive (Nonreactive); Hepatitis B Surface Antigen Non-Reactive (Nonreactive); Hepatitis C Virus Antibody Non-Reactive (Nonreactive)
[2021-03-01 13:39] LABS: Erythrocyte Sedimentation Rate 18 mm/hr (0-15)
[2021-03-02 14:55] LABS: Cyclic Citrullinated Peptide <16 UNITS
[2021-03-03 13:02] LABS: Quantiferon Mitogen >10.00 IU/mL; Quantiferon Nil 0.02 IU/mL; Quantiferon TB Gold NEGATIVE (NEGATIVE)
== END 2021-03-01 11:00 | disposition home or self-care (01) ==
PROVIDERS: PCP Family Medicine; Visit Provider Internal Medicine Rheumatology
DX: M19.90 Unspecified osteoarthritis, unspecified site (principal); Z79.899 Other long term (current) drug therapy; Z11.59 Encounter for screening for other viral diseases; Z11.1 Encounter for screening for respiratory tuberculosis
CPT/HCPCS: 36415; 71046; 73130; 73630; 82306; 85651; 86140; 86431; 86480; 86704; 86803; 87340

== ENCOUNTER → 2021-03-20 09:18 | Outpatient (BNVA) | payer MEDICAID, SELFPAY | PROVIDERS: PCP Family Medicine; Visit Provider Internal Medicine Rheumatology | DX: M19.90 Unspecified osteoarthritis, unspecified site (principal); D89.2 Hypergammaglobulinemia, unspecified; Z79.899 Other long term (current) drug therapy; E11.9 Type 2 diabetes mellitus without complications; Z79.84 Long term (current) use of oral hypoglycemic drugs; M79.7 Fibromyalgia; Z71.85 Encounter for immunization safety counseling; F17.200 Nicotine dependence, unspecified, uncomplicated | CPT/HCPCS: 99214 ==

== ENCOUNTER 2021-09-05 14:18 | Outpatient (CLI) | payer MEDICARE, MEDICAID, SELFPAY ==
--- NOTE | 2021-09-12 10:35 | ONC FU_ITS ---
Claire Lock Progress Note Patient: Bijal Wise Unit #: [id number]: [id number] Dicatated By: Claire Lock N.P.Date of Visit:Sep 05, 2021 Onc MED Follow-up/Prog Note Chief Complaint: Pancytopenia History of Present Illness: Mrs. Bijal Wise, is a 70-year-old female with a history of low blood counts for many years, as per patient about 15 years ago she underwent bone marrow evaluation in [facility], as per patient at that time there was a concern about lesion on her spine, there was a concern about bone cancer but bone marrow evaluation showed no abnormality. And then about 3 years ago her routine labs showed high protein in the blood, at that time she underwent some further blood testing but since then she has been followed by her primary care. Denies any history of blood transfusion or platelet transfusion denies any recurrent infections. Denies any alcohol use or smoking, colonoscopy was done about 5 years ago and [place], as per patient it was normal and so follow-up was colonoscopy scheduled in August this year but because of coronavirus it was postponed. Patient denies any history of hepatitis or hepatic problem, no history of congestive heart failure. Patient denies any history of night sweats, recurrent fevers, weight loss, and peripheral lymphadenopathy. Recently she was diagnosed with iron deficiency as her labs from November 22, 2019 showed white blood count 3.2 hemoglobin 11.6 crit 36.3 platelets 87,000, reticulocyte count 2.1, TSH 1.5, folate 9.6, B12 419, iron saturation 18, iron 65, TIBC 364 total protein 6.7 ferritin 23. Patient was started on oral iron, tolerating reasonably well. Patient denies any history of melena or hematochezia, denies any history of hemoptysis or hematemesis, denies any jaundice, denies any palpitation or shortness of breath. Ultrasonogram Abdomen done on December 27, 2019 showed splenomegaly size being 21.5 cm and hepatomegaly size being 22.7 cm, gallstones but no hydronephrosis Serum protein electrophoresis/immunofixation done on November 29, 2019 confirmed faint restricted band M spike in the gamma region and immunofixation confirmed it as a IgA with a kappa antisera earlier bone marrow was attempted to rule out plasma cell disorder and etiology of pancytopenia but prior to procedure with conscious sedation, patient become unresponsive, procedure was abandoned and anesthesiology managed her well. Patient presents today for follow-up. She is scheduled for bone marrow biopsy next week. She states her appetite has been good. No fever, chills, night sweats. No sinus drainage or mouth sores. No cough or chest pain. She complains of achiness all over and it is on and off. No headache. Review Of Symptoms: See above. Past Medical History: Asthma Chronic obstructive pulmonary disease Degenerative joint disease Fibromyalgia Hiatal hernia Hypertension Obstructive sleep apnea Restless leg syndrome Type II diabetes Past Surgical History: Bilateral total knee replacement Bone marrow aspiration/biopsy Cataract excision Hysterectomy Allergies: Mirapex Medications: amLODIPine Besy-Benazepril HCl 1 Capsule (of 10-20 mg) Oral daily Esomeprazole Magnesium 1 Capsule Oral b.i.d. HYDROcodone-Ibuprofen 1 Tablet (of 10-200 mg) Oral t.i.d. PRN Hydroxychloroquine Sulfate (200 mg) Tablet Oral b.i.d. Iron 1 Tablet (of 325 (65 fe) mg) Oral daily Lasix 1 Tablet (of 40 mg) Oral daily metFORMIN HCl 1 Tablet (of 1000 mg) Oral b.i.d. PARoxetine HCl 1 Tablet (of 40 mg) Oral daily rOPINIRole HCl 1 Tablet (of 4 mg) Oral daily PRN sulfaSALAzine (1000 mg) Tablet Oral t.i.d. Vitamin D Tablet Oral daily Family History: Ms. Wise's mother at age 68: stroke, and breast cancer. Ms. Wise's father at age 60: myocardial infarction. Ms. Wise has 2 sisters: 1 alive, 1 . Ms. Wise's first sister's breast cancer. Another sister's breast cancer. Social History: Ms. Wise is legally and she is an unknown. She is a daily smoker who has smoked 0.5 packs/day for 32 years. She has no history of drinking. She has indicated exposure to the following products: cigarettes. Ms. Wise reports the following support systems: lives alone, supportive family/friends willing to assist with needs, and adequate transportation available for expected visits. Her diet consists of regular meals. She indicates her activity level as: occasional exercise. less than half a pack. Physical Examination: Performed on Sep 05, 2021 15:09: Height - 67.00 in, Weight - 238.2 lbs (HIGH), BSA - 2.18 sq.m, BMI - 37.31 (HIGH), Temperature - 98.7 F, Pulse - 86 /min, Respiration - 18 /min, BP - 134/71 mm(hg), O2 Sat - 95 % (LOW), Pain - 9, and Fatigue - 8. Performance Status: 1 - No physically strenuous activity, but ambulatory and able to carry out light or sedentary work (e.g. office work, light house work). (ECOG) Constitutional Alert, cooperative, oriented. Mood and affect appropriate. Appears close to chronological age. Well nourished. Well developed. Head Normocephalic; no scars. Respiratory Lungs are clear to auscultation without rhonchi or wheezing. Cardiovascular Regular rate and rhythm of heart without murmurs, gallops or rubs. Extremities No visible deformities, no cyanosis, clubbing or edema. Pulses 3+ and equal bilaterally. Psychiatric Alert and oriented times three. Coherent speech. Verbalizes understanding of our discussions today. Laboratory: Test performed on Jul 30, 2021 12:00 WBC 1.9 10^9/L RBC 4.01 10^12/L HGB 11.9 g/dL HCT 34.9 % MCV 87.0 fl MCH 29.8 pg MCHC 34.2 g/dL RDW 14.1 % Platelet Count 69 10^9/L MPV 8.7 fL Neutrophils (Gran) 0.96 10^9/L Lymphocytes 0.703 10^9/L Monocytes 0.1596 10^9/L Eosinophils 0.0551 10^9/L Basophils 0.0114 10^9/L IGA 437 mg/dL IGG 1095 mg/dL IGM 153 mg/dL [place] / Lambda Ratio 1.32 Absolute Value Lambda Light Chain 21.5 [place] Light Chain 28.3 Test performed on Jun 20, 2021 09:56 Ferritin 36 ng/mL % Iron Saturation 25 % Glucose 174 mg/dL BUN 8 mg/dL Iron, Total 82 mcg/dL Creatinine 0.54 mg/dL TIBC 327 mcg/dL Cr Clearance (Est) 160.53 mL/min BUN/Creatinine Ratio 15 Absolute Value Sodium 140 mmol/L Potassium 4.4 mmol/L Chloride 102 mmol/L CO2 26 mmol/L Calcium 9.8 mg/dL Protein, Total 7.3 g/dL Albumin 3.9 g/dL Globulin 3.4 g/dL A/G Ratio 1.1 Absolute Value Bilirubin, Total 0.8 mg/dL Alkaline Phosphatase 47 International Units/L AST (SGOT) 19 International Units/L ALT (SGPT) 14 International Units/L Test performed on May 02, 2021 10:21 Manual Lymphocytes 36 % Manual Monocytes 8 % Manual Eosinophils 2 % Manual Basophils 1 % Test performed on Apr 10, 2021 08:32 C-Reactive Protein (mg/L) 1 mg/L Bilirubin, Direct 0.15 mg/dL Impression: Pancytopenia, etiology could be multifactorial including nutritional, copper, zinc deficiency could be due to medications, could be primary bone marrow disorder like myelodysplasia or other marrow disorder, or splenic sequestration or Hepatosplenomegaly seen on abdominal sonogram done on December 27, 2019, liver size was 22.7 cm and spleen size was 21.5 cm 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 She will follow-up in 2 weeks to discuss results with CBC and CMP. Signed By: Claire Lock NElroy. <<Signature on File>>
== END 2021-09-05 14:19 | disposition home or self-care (01) ==
PROVIDERS: PCP Family Medicine; Visit Provider Internal Medicine Hematology & Oncology
DX: D61.818 Other pancytopenia (principal); R16.2 Hepatomegaly with splenomegaly, not elsewhere classified; D47.2 Monoclonal gammopathy; Z79.899 Other long term (current) drug therapy
CPT/HCPCS: 87635; 99214

== ENCOUNTER 2021-09-10 09:57 | Day surgery (SDC) | payer MEDICARE, MEDICAID, SELFPAY ==
[2021-09-07 07:14] VITALS: BMI 36.8
[2021-09-10 10:51] VITALS: BP 143/81; PULSE 64; RESP 18; TEMP 36.3; O2SAT 97
[2021-09-10] MEDS: sodium chloride 0.9% 1,000 ML 30 ML IV (11:10)
--- NOTE | 2021-09-10 11:18 | P.ANESASSM_ITS ---
Pre-Anesthetic Assessment Height/Weight: Height 1.7 m Weight 106.594 kg Temp Pulse Resp BP Pulse Ox 97.4 F L 64 18 143/81 97 09/10/21 10:51 09/10/21 10:51 09/10/21 10:51 09/10/21 10:51 09/10/21 10:51 Preop Diagnosis: pancytopenia Operation Date: 09/10/21 12:30 Proposed Procedures p Bone Marrow Biospy With Aspiration(Not Applicable) - Venancio Hill MD Was Clonidine taken within 24 hours: N/A Last intake: Intake Last Liquid Date 09/09/21 Last Liquid Time 23:30 Last Solid Date 09/09/21 Last Solid Time 16:00 Social Tobacco and No alcohol Exam alert, oriented x 3, clear to auscultation bilaterally and regular rate & rhythm Airway Submandibular: within normal limits Cervical ROM: within normal limits Mallampati: Class II Dentition: false History/ROS No significant history except as noted and No significant complaints Pulmonary Chronic Obstructive Pulmonary Disease, Exertional Dyspnea, Sleep Apnea and Shortness of Breath CV/HEM None reported None reported Hepatic Cirrhosis GI Gastroesophageal Reflux Disease Metabolic Diabetes Mellitus [facility] [place] None reported Neuropsych None reported Anesthetic Plan ASA status: 3 Anesthesia: Anesthesia Evaluation and MAC Risk of > 500 ml blood loss (7ml/kg in children): No Medications/Allergies Home Medications Medication Instructions Recorded Confirmed Last Taken Type amlodipine 10 mg-benazepril 20 mg 1 cap PO DAILY 01/06/20 09/07/21 09/09/21 History capsule esomeprazole magnesium 20 mg 20 mg PO BID 01/06/20 09/07/21 09/09/21 History capsule,delayed release (Nexium) hydrocodone 5 mg-acetaminophen 325 1 tab PO Q8H PRN 01/06/20 09/07/21 09/09/21 History mg tablet metformin 1,000 mg tablet 1,000 mg PO BID 01/06/20 09/07/21 09/09/21 History ropinirole 4 mg tablet 4 mg PO TID 01/06/20 09/10/21 09/10/21 History fluoxetine 40 mg capsule (Prozac) 40 mg PO DAILY 03/01/21 09/07/21 09/09/21 History levocetirizine 5 mg tablet 5 mg PO DAILY 03/01/21 09/07/21 09/09/21 History hydroxychloroquine 200 mg tablet 200 mg PO BID #60 tab 03/20/21 09/07/21 09/09/21 Rx sulfasalazine 500 mg tablet 1 g PO BID #120 tab 03/20/21 09/07/21 09/09/21 Rx tramadol 50 mg tablet 50 mg PO TID PRN #60 tab 08/08/21 09/07/21 09/09/21 Rx calcium phosphate,dibasic 77 1 tab PO DAILY 09/07/21 09/07/21 09/09/21 History mg-vitamin D3 400 unit tablet ferrous sulfate 325 mg (65 mg 325 mg PO DAILY 09/07/21 09/07/21 09/09/21 History iron) tablet (iron) Allergies Allergy/AdvReac Type Severity Reaction Status Date / Time pramipexole [From Mirapex] Allergy Unknown Verified 03/20/21 09:36 Current Medications Generic Name Dose Route Start Last Admin Trade Name Freq PRN Reason Stop Dose Admin Sodium Chloride 1,000 mls @ 30 mls/hr 09/10/21 10:45 09/10/21 11:10 Sodium Chloride 0.9% IV 09/11/21 10:44 30 mls/hr .Q24H RUBIA Administration PFSH Anesthesia Medical History High risk medication use Immunization counseling Inflammatory arthritis Paraproteinemia Type 2 diabetes mellitus Family History Mother Breast cancer Stroke Father Myocardial infarction Sister Breast cancer Other CAD (coronary artery disease) Cancer Diabetes Denies family history of Rheumatoid arthritis Lupus Chronic kidney disease (CKD) Lung disease Hypertension Social History Smoking and tobacco status: current every day smoker Data Anesthesia Cardiac Studies: No Data to Display
[2021-09-10 11:38] LABS: Basophils % 0.6 %; Eosinophils % 2.2 %; Hematocrit 35.2 % (37.0-47.0); Hemoglobin 11.6 g/dL (11.5-15.3); Lymphocytes # 0.6 10^3/uL (0.8-4.8); Lymphocytes % 32.6 %; Mean Corpuscular Hemoglobin 28.6 pg (28.0-34.0); Mean Corpuscular Volume 86.7 fl (81-99); Mean Platelet Volume 11.4 fL (7.4-10.4); Monocytes # 0.1 10^3/uL (0.2-0.9); Monocytes % 6.6 %; Neutrophils # 1.04 10^3/uL (1.8-7.7); Neutrophils % 57.4 %; Nucleated Red Blood Cells % 0 %; Platelet Count 64 10^3/cmm (130-400); Red Blood Count 4.06 10^6/uL (4.1-5.3); Red Cell Distribution Width 13.1 % (12.1-15.1); White Blood Count 1.8 10^3/uL (4.0-10.0)
--- NOTE | 2021-09-10 11:40 | W.PM.OPSUD ---
Surgery/Procedure H&P Update DATE OF PROCEDURE: September 10, 2021 DATE H&P PERFORMED: 01/05/20 CHANGES TO PREVIOUS DOCUMENTATION: Ms. Bijal Wise with a history of pancytopenia etiology could be multifactorial including underlying MDS, now being scheduled for bone marrow evaluation, since her last visit, no significant changes or symptoms PREOP DIAGNOSIS: pancytopenia PLANNED PROCEDURE: Operation Date: 09/10/21 12:30 Proposed Procedures p Bone Marrow Biospy With Aspiration(Not Applicable) - Venancio Hill MD
--- NOTE | 2021-09-10 12:18 | PM.BMB ---
Bone Marrow Biopsy Bone Marrow Biopsy: I was consulted by [] office regarding bone marrow biopsy on [Bijal Wise]. Briefly, the patient is a [70] year old [Female] with [Pancytopenia]. In the Outpatient Services Department, with nursing staff and laboratory technologists in attendance, the procedure was discussed with the patient. Appropriate consent form had been signed. Appropriate alternatives, benefits and risks of procedure were discussed with the patient and she was pre-operatively assessed with a history and physical by myself and cleared for the biopsy procedure. The patient did request IV sedation and that was provided by the Anesthesia Department. Under aseptic condition, right posterior iliac area was cleaned and prepped, local anesthesia was given, about 15 cc of bone marrow aspirate and core biopsy was obtained, patient tolerated procedure well, hemostasis obtained, specimen was sent for routine histopathology, flow cytometry, cytogenetics and FISH for MDS and myeloma panel. Postprocedure nursing instructions were given. Thank you for allowing me to participate in this patient's care and diagnosis. Coding Level of Care Code Acute Web Page Developer for Chg Fwd History Problem Focused Exam Problem Focused Medical Decision Making Straight Forward
[2021-09-10 12:24] VITALS: BP 112/44; PULSE 71; RESP 18; TEMP 36.6; O2SAT 97
--- NOTE | 2021-09-10 12:35 | PC.NURSE ---
patient out of procedure. gauze and tape to back dry and intact.
[2021-09-10 12:38] VITALS: BP 127/71; PULSE 66; RESP 18; TEMP 36.6; O2SAT 97
--- NOTE | 2021-09-10 13:04 | PC.NURSE ---
patient bone marrow site dry and intact to signs of bleeding. Will discharge patient home.
--- NOTE | 2021-09-10 14:08 | ANE.PACU2 ---
Inpatient post-anesthesia follow up: Airway intact: Yes Vital signs: Temperature 98 F Pulse Rate 66 Respiratory Rate 18 Blood Pressure 127/71 Pulse Oximetry 97 Oxygen Delivery Me thod Room Air Oxygen Flow Rate Fraction of Inspir ed Oxygen Hydration adequate: Yes Nausea and vomiting: No Pain level: 6 Mental status: Baseline
[2021-09-12 08:38] LABS: Leukemia Profile (BBPL) See Report; Lymphoma Profile (BBPL) See Report
[2021-09-21 12:22] LABS: Miscellaneous Test See Scanned Lab Rpt
== END 2021-09-10 13:04 | disposition home or self-care (01) ==
PROVIDERS: PCP Family Medicine; Visit Provider Internal Medicine Hematology & Oncology
PROC: 07DT3ZX Extraction of Bone Marrow, Percutaneous Approach, Diagnostic (ICD-10-PCS; CPT 38222; principal; 2021-09-10 12:30)
DX: D61.818 Other pancytopenia (principal); J44.9 Chronic obstructive pulmonary disease, unspecified; G47.30 Sleep apnea, unspecified; K21.9 Gastro-esophageal reflux disease without esophagitis; E11.9 Type 2 diabetes mellitus without complications; F17.210 Nicotine dependence, cigarettes, uncomplicated
CPT/HCPCS: 36415; 38222; 85025; 88184; 88185; 88237; 88264; 88305; 88311; 88367; 88374; J2704; J7030

== ENCOUNTER 2021-10-03 08:50 | Outpatient (CLI) | payer MEDICARE, MEDICAID, SELFPAY ==
[2021-10-03 09:43] LABS: Basophils % 0.4 %; Eosinophils # 0.1 10^3/uL (0.0-0.8); Eosinophils % 2.2 %; Hematocrit 36.4 % (37.0-47.0); Hemoglobin 11.9 g/dL (11.5-15.3); Lymphocytes # 0.7 10^3/uL (0.8-4.8); Lymphocytes % 25.1 %; Mean Corpuscular HGB Conc 32.7 g/dL (30.0-36.0); Mean Corpuscular Hemoglobin 27.9 pg (28.0-34.0); Mean Corpuscular Volume 85.2 fl (81-99); Mean Platelet Volume 11.7 fL (7.4-10.4); Monocytes # 0.2 10^3/uL (0.2-0.9); Monocytes % 6.1 %; Neutrophils # 1.84 10^3/uL (1.8-7.7); Neutrophils % 65.8 %; Nucleated Red Blood Cells % 0 %; Platelet Count 64 10^3/cmm (130-400); Red Blood Count 4.27 10^6/uL (4.1-5.3); Red Cell Distribution Width 13.5 % (12.1-15.1); White Blood Count 2.8 10^3/uL (4.0-10.0)
[2021-10-03 10:00] LABS: Alanine Aminotransferase 22 U/L (0-33); Albumin Level 3.8 g/dL (3.5-5.2); Alkaline Phosphatase 50 IU/L (35-105); Anion Gap 14.7 (5-19); Aspartate Amino Transferase 18 U/L (0-32); Blood Urea Nitrogen 11 mg/dL (8-23); Calcium 9.5 mg/dL (8.5-10.5); Carbon Dioxide 24 mmol/L (22-29); Chloride 103 mmol/L (98-107); Globulin 2.9 g/dL (1.3-4.6); Glomerular Filtration Rate 219.9 mL/min (90-130); Glucose 208 mg/dL (65-115); Osmolality Calculated 291 mOsm/kg (285-295); Potassium 3.7 mmol/L (3.5-5.1); Sodium 138 mmol/L (136-145); Total Bilirubin 0.5 mg/dL (0.15-1.2); Total Protein 6.7 g/dL (6.6-8.7)
--- NOTE | 2021-10-08 09:33 | ONC FU_ITS ---
Claire Lock Progress Note Patient: Bijal Wise Unit #: [id number]: [id number] Dicatated By: Claire Lock N.P.Date of Visit:Oct 03, 2021 Onc MED Follow-up/Prog Note Chief Complaint: Pancytopenia History of Present Illness: Mrs. Bijal Wise, is a 70-year-old female with a history of low blood counts for many years, as per patient about 15 years ago she underwent bone marrow evaluation in [facility], as per patient at that time there was a concern about lesion on her spine, there was a concern about bone cancer but bone marrow evaluation showed no abnormality. And then about 3 years ago her routine labs showed high protein in the blood, at that time she underwent some further blood testing but since then she has been followed by her primary care. Denies any history of blood transfusion or platelet transfusion denies any recurrent infections. Denies any alcohol use or smoking, colonoscopy was done about 5 years ago and Home, as per patient it was normal and so follow-up was colonoscopy scheduled in August this year but because of coronavirus it was postponed. Patient denies any history of hepatitis or hepatic problem, no history of congestive heart failure. Patient denies any history of night sweats, recurrent fevers, weight loss, and peripheral lymphadenopathy. Recently she was diagnosed with iron deficiency as her labs from November 22, 2019 showed white blood count 3.2 hemoglobin 11.6 crit 36.3 platelets 87,000, reticulocyte count 2.1, TSH 1.5, folate 9.6, B12 419, iron saturation 18, iron 65, TIBC 364 total protein 6.7 ferritin 23. Patient was started on oral iron, tolerating reasonably well. Patient denies any history of melena or hematochezia, denies any history of hemoptysis or hematemesis, denies any jaundice, denies any palpitation or shortness of breath. Ultrasonogram Abdomen done on December 27, 2019 showed splenomegaly size being 21.5 cm and hepatomegaly size being 22.7 cm, gallstones but no hydronephrosis Serum protein electrophoresis/immunofixation done on November 29, 2019 confirmed faint restricted band M spike in the gamma region and immunofixation confirmed it as a IgA with a kappa antisera earlier bone marrow was attempted to rule out plasma cell disorder and etiology of pancytopenia but prior to procedure with conscious sedation, patient become unresponsive, procedure was abandoned and anesthesiology managed her well. Patient presents today for follow-up after her bone marrow biopsy which was performed on 09/10/2021. She continues to have fatigue. Her appetite is good. She denies fever, chills, night sweats. No sinus drainage or sore throat. She has some shortness of breath with activity. She denies cough or chest pain. No nausea or vomiting. She has chronic back pain which causes her a lot of discomfort. She denies headache or dizziness. Review Of Symptoms: See above. Past Medical History: Asthma Chronic obstructive pulmonary disease Degenerative joint disease Fibromyalgia Hiatal hernia Hypertension Obstructive sleep apnea Restless leg syndrome Type II diabetes Past Surgical History: Bilateral total knee replacement Bone marrow aspiration/biopsy Cataract excision Hysterectomy Allergies: Mirapex Medications: amLODIPine Besy-Benazepril HCl 1 Capsule (of 10-20 mg) Oral daily Esomeprazole Magnesium 1 Capsule Oral b.i.d. HYDROcodone-Ibuprofen 1 Tablet (of 10-200 mg) Oral t.i.d. PRN Hydroxychloroquine Sulfate (200 mg) Tablet Oral b.i.d. Iron 1 Tablet (of 325 (65 fe) mg) Oral daily Lasix 1 Tablet (of 40 mg) Oral daily metFORMIN HCl 1 Tablet (of 1000 mg) Oral b.i.d. PARoxetine HCl 1 Tablet (of 40 mg) Oral daily rOPINIRole HCl 1 Tablet (of 4 mg) Oral daily PRN sulfaSALAzine (1000 mg) Tablet Oral t.i.d. Vitamin D Tablet Oral daily Family History: Ms. Wise's mother at age 68: stroke, and breast cancer. Ms. Wise's father at age 60: myocardial infarction. Ms. Wise has 2 sisters: 1 alive, 1 . Ms. Wise's first sister's breast cancer. Another sister's breast cancer. Social History: Ms. Wise is legally and she is an unknown. She is a daily smoker who has smoked 0.5 packs/day for 32 years. She has no history of drinking. She has indicated exposure to the following products: cigarettes. Ms. Wise reports the following support systems: lives alone, supportive family/friends willing to assist with needs, and adequate transportation available for expected visits. Her diet consists of regular meals. She indicates her activity level as: occasional exercise. less than half a pack. Physical Examination: Performed on Oct 03, 2021 11:02: Height - 67.00 in, Weight - 238.2 lbs, BSA - 2.18 sq.m, BMI - 37.31 (HIGH), Temperature - 97.5 F (LOW), Pulse - 83 /min, Respiration - 20 /min, BP - 151/83 mm(hg) (HIGH), O2 Sat - 99 %, Pain - 8, and Fatigue - 7. Performance Status: 2 - Ambulatory/capable of all self-care, unable to perform any work activities. Up and about more than 50% of waking hours. (ECOG) Constitutional Alert, cooperative, oriented. Mood and affect appropriate. Appears close to chronological age. Well nourished. Well developed. Respiratory Lungs are clear to auscultation without rhonchi or wheezing. Cardiovascular Regular rate and rhythm of heart without murmurs, gallops or rubs. Abdomen Non-tender, non-distended, no masses, ascites or hepatosplenomegaly. Good bowel sounds. No guarding or rebound tenderness. Musculoskeletal Generalized weakness Psychiatric Alert and oriented times three. Coherent speech. Verbalizes understanding of our discussions today. Laboratory: Test performed on Oct 03, 2021 09:24 Sodium 138 mmol/L Potassium 3.7 mmol/L Chloride 103 mmol/L CO2 24 mmol/L Anion Gap 14.7 BUN 11 mg/dL Creatinine 0.3 mg/dL Cr Clearance (Est) 297.6300 mL/min eGFR 219.9 mL/min Glucose 208 mg/dL Osmolality - Calculated 291 mOsm/kg Calcium 9.5 mg/dL Protein, Total 6.7 g/dL Albumin 3.8 g/dL Globulin 2.9 g/dL Bilirubin, Total 0.5 mg/dL ALT (SGPT) 22 U/L AST (SGOT) 18 U/L Alkaline Phosphatase 50 IU/L WBC 2.8 10 3/uL RBC 4.27 10 6/uL HGB 11.9 g/dL HCT 36.4 % MCV 85.2 fl MCH 27.9 pg MCHC 32.7 g/dL RDW 13.5 % Platelet Count 64 10 3/cmm MPV 11.7 fL Neutrophils 1.84 10 3/uL Lymphocytes 0.7 10 3/uL Monocytes 0.2 10 3/uL Eosinophils 0.1 10 3/uL Basophils 0.0 10 3/uL Neutrophil % 65.8 % Lymphocyte % 25.1 % Monocyte % 6.1 % Eosinophil % 2.2 % Basophils % 0.4 % NRBC % 0 % Test performed on Jul 30, 2021 12:00 IGA 437 mg/dL IGG 1095 mg/dL IGM 153 mg/dL [place] / Lambda Ratio 1.32 Absolute Value Lambda Light Chain 21.5 [place] Light Chain 28.3 Test performed on Jun 20, 2021 09:56 Ferritin 36 ng/mL % Iron Saturation 25 % Iron, Total 82 mcg/dL TIBC 327 mcg/dL BUN/Creatinine Ratio 15 Absolute Value A/G Ratio 1.1 Absolute Value Test performed on May 02, 2021 10:21 Manual Lymphocytes 36 % Manual Monocytes 8 % Manual Eosinophils 2 % Manual Basophils 1 % Test performed on Apr 10, 2021 08:32 C-Reactive Protein (mg/L) 1 mg/L Bilirubin, Direct 0.15 mg/dL Impression: Pancytopenia, etiology could be multifactorial including nutritional, copper, zinc deficiency could be due to medications, could be primary bone marrow disorder like myelodysplasia or other marrow disorder, or splenic sequestration or Hepatosplenomegaly seen on abdominal sonogram done on December 27, 2019, liver size was 22.7 cm and spleen size was 21.5 cm 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 Her WBC is 2.8, hemoglobin 11.9, hematocrit 36.4, and platelet count at 64,000. Her stable other than her glucose being elevated at 208. The current bone marrow is normocellular for the patient's age, does not show any overt dyspoietic changes, and shows decreased storage iron without ring sideroblasts. No overt features are seen to suggest a myelodysplastic syndrome. Megakaryopoiesis is adequate to increased which could suggest a possible immune thrombocytopenic purpura component to explain the patient's thrombocytopenia. Results were discussed with the patient. She is requesting to have a televisit for her 3-month follow-up. She will obtain labs at [facility] with CBC and CMP. Signed By: Claire Lock N.P. <<Signature on File>>
== END 2021-10-03 08:51 | disposition home or self-care (01) ==
PROVIDERS: PCP Family Medicine; Visit Provider Internal Medicine Hematology & Oncology
DX: M06.041 Rheumatoid arthritis without rheumatoid factor, right hand (principal); M06.042 Rheumatoid arthritis without rheumatoid factor, left hand; Z79.899 Other long term (current) drug therapy; D89.2 Hypergammaglobulinemia, unspecified; E11.9 Type 2 diabetes mellitus without complications; Z79.84 Long term (current) use of oral hypoglycemic drugs; Z71.89 Other specified counseling
CPT/HCPCS: 36415; 80053; 85025; 99214

== ENCOUNTER → 2022-01-30 10:58 | Outpatient (BNVA) | payer MEDICARE, MEDICAID, SELFPAY | PROVIDERS: PCP Family Medicine; Visit Provider Internal Medicine Rheumatology | DX: M06.041 Rheumatoid arthritis without rheumatoid factor, right hand (principal); M06.042 Rheumatoid arthritis without rheumatoid factor, left hand; Z79.899 Other long term (current) drug therapy; D61.818 Other pancytopenia; Z71.89 Other specified counseling; E11.9 Type 2 diabetes mellitus without complications; Z79.84 Long term (current) use of oral hypoglycemic drugs; K21.9 Gastro-esophageal reflux disease without esophagitis | CPT/HCPCS: 99214 ==

== ENCOUNTER 2022-09-04 13:53 | Oncology outpatient (recurring) (ONCR) | payer MEDICARE, MEDICAID, SELFPAY ==
[2022-09-04 14:27] LABS: Basophils % 0.3 %; Eosinophils # 0.1 10^3/uL (0.0-0.8); Eosinophils % 2.7 %; Hematocrit 33.8 % (37.0-47.0); Hemoglobin 11.1 g/dL (11.5-15.3); Lymphocytes # 0.9 10^3/uL (0.8-4.8); Lymphocytes % 31.9 %; Mean Corpuscular HGB Conc 32.8 g/dL (30.0-36.0); Mean Corpuscular Hemoglobin 28.6 pg (28.0-34.0); Mean Corpuscular Volume 87.1 fl (81-99); Mean Platelet Volume 10.8 fL (7.4-10.4); Monocytes # 0.2 10^3/uL (0.2-0.9); Monocytes % 6.1 %; Neutrophils # 1.73 10^3/uL (1.8-7.7); Neutrophils % 58.7 %; Nucleated Red Blood Cells % 0 %; Platelet Count 77 10^3/cmm (130-400); Red Blood Count 3.88 10^6/uL (4.1-5.3); Red Cell Distribution Width 13.3 % (12.1-15.1)
[2022-09-04 14:49] LABS: Alanine Aminotransferase 28 U/L (0-33); Albumin Level 3.8 g/dL (3.5-5.2); Alkaline Phosphatase 45 U/L (35-105); Anion Gap 14.5 (5-19); Aspartate Amino Transferase 22 U/L (0-32); Blood Urea Nitrogen 17 mg/dL (8-23); Calcium 9.5 mg/dL (8.5-10.5); Carbon Dioxide 27 mmol/L (22-29); Chloride 106 mmol/L (98-107); Globulin 2.8 g/dL (1.3-4.6); Glucose 177 mg/dL (65-115); Osmolality Calculated 302 mOsm/kg (285-295); Potassium 4.5 mmol/L (3.5-5.1); Sodium 143 mmol/L (136-145); Total Bilirubin 0.6 mg/dL (0.15-1.2); Total Protein 6.6 g/dL (6.6-8.7)
== END 2022-09-13 23:59 | disposition home or self-care (01) ==
PROVIDERS: Nurse Practitioner Family; PCP Family Medicine; Visit Provider Internal Medicine Hematology & Oncology
DX: D61.818 Other pancytopenia (principal); R16.2 Hepatomegaly with splenomegaly, not elsewhere classified; D47.2 Monoclonal gammopathy; D69.6 Thrombocytopenia, unspecified; D72.819 Decreased white blood cell count, unspecified; Z79.899 Other long term (current) drug therapy
CPT/HCPCS: 36415; 80053; 85025; 99214